=== PATIENT | male | born 1995 | race American Indian/Alaskan Native ===

== ENCOUNTER 2020-07-24 02:52 | Emergency (ER) | payer SELFPAY ==
[2020-07-24 03:12] VITALS: BP 118/70
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
== END 2020-07-24 03:52 | disposition home or self-care (01) ==
LOC: ED 02:52
DX: J32.9 Chronic sinusitis, unspecified (principal); F12.90 Cannabis use, unspecified, uncomplicated; Z79.899 Other long term (current) drug therapy; Z91.018 Allergy to other foods; Z91.048 Other nonmedicinal substance allergy status; Z98.890 Other specified postprocedural states
CPT/HCPCS: 99281